=== PATIENT | male | born 1995 ===

== ENCOUNTER 2023-08-26 05:45 | Day surgery (SDC) | payer OTHER ==
[2023-08-26] VITALS (7 sets, daily range): BP systolic 125–135; BP diastolic 70–87; PULSE 65–91; RESP 9–16; TEMP 98.2; O2SAT 98–100
[~2023-08-26] VITALS: Ht 172.7 cm; Wt 82.9 kg
[2023-08-26] MEDS: cefazolin 2gm/D5W 100mL 100 ML IV ONE (05:30)
[~2023-08-26 05:45] MED LIST: CAPS60CR6 TP; DICL100G59 TOP; LIDO1ADH67 TOP
[2023-08-26] MEDS: ringers solution, lacted 1,000 ML IV SCH (06:12)
[2023-08-26] MEDS: famotidine 20mg tablet PO ONE (06:12)
[2023-08-26] MEDS ORDERED: cloNIDine hcl/PF 100mcg/ml inj ONE (07:09)
[2023-08-26] MEDS ORDERED: epiNEPHrine 1 mg/ml inj ONE (07:17)
[2023-08-26] MEDS ORDERED: ROPIVAcaine 0.5% (5mg/ml) 30ml vial ONE ×2 (07:17→08:09)
[2023-08-26] MEDS ORDERED: gelatin sponge, absorbable (Gelfoam 100) sponge TP ONE (07:18)
[2023-08-26] MEDS ORDERED: Thrombin (Bovine) 5,000 unit vial TP ONE (07:18)
[2023-08-26] MEDS ORDERED: MIDAZolam 1 MG/ML 5ML VIAL ONE (07:31)
[2023-08-26] MEDS ORDERED: fentaNYL /PF 50mcg/ml 5ml ampule ONE (07:34)
[2023-08-26] MEDS ORDERED: hydrALAZINE 20mg/ml inj. IV PRN (07:40)
[2023-08-26] MEDS ORDERED: meperidine/PF 25mg/ml syringe IV PRN ×3 (07:40)
[2023-08-26] MEDS: ketorolac trometh. 30mg/ml inj. IV ONE (07:40)
[2023-08-26] MEDS ORDERED: proCHLORperazine 10 MG/2 ml inj IV PRN (07:40)
[2023-08-26] MEDS ORDERED: morphine 2 MG/ML inj. syringe IV PRN (07:40)
[2023-08-26] MEDS ORDERED: labetalol 20mg/4ml (5mg/ml) syringe IV PRN (07:40)
[2023-08-26] MEDS: acetaminophen 1,000mg/100ml IV 100 ML IV ONE (07:40)
[2023-08-26] MEDS ORDERED: ondansetron/PF 4mg/2ml inj IV PRN (07:40)
[2023-08-26] MEDS ORDERED: ringers solution, lacted 1,000 ML IV SCH (07:40)
[2023-08-26] MEDS ORDERED: morphine 4 MG/ML inj SYRINge IV PRN (07:40)
[2023-08-26] MEDS ORDERED: sevoflurane 250ml liquid IH ONE (07:45)
[2023-08-26] MEDS ORDERED: dexamethasone sod phosphate 4mg/ml inj. ONE (08:09)
[2023-08-26] MEDS ORDERED: LIDOcaine 1%/PF 5ML 10 MG/ML VIAL ONE (08:09)
[2023-08-26] MEDS ORDERED: propofol inj 20 ML IV ONE (08:09)
[2023-08-26] MEDS ORDERED: LIDOcaine 2% (20mg/ml) 5ml vial ONE (08:09)
[2023-08-26] MEDS ORDERED: ondansetron/PF 4mg/2ml inj ONE (08:09)
[2023-08-26] MEDS: Thrombin (Bovine) 5,000 unit vial TP ONE (09:27)
[2023-08-26] MEDS ORDERED: morphine 10mg/ml inj. ONE ×2 (10:16→10:51)
== END 2023-08-26 12:06 | disposition home or self-care (01) ==
LOC: PAS 05:45 → EEVIPCON 11:00 → PAS 12:06
PROVIDERS: ATTEND Orthopaedic Surgery
DX: S83.512A Sprain of anterior cruciate ligament of left knee, initial encounter (principal); S83.282A Other tear of lateral meniscus, current injury, left knee, initial encounter; G89.18 Other acute postprocedural pain; M23.52 Chronic instability of knee, left knee; I10 Essential (primary) hypertension; E66.9 Obesity, unspecified; Z79.899 Other long term (current) drug therapy; Z68.27 Body mass index [BMI] 27.0-27.9, adult; X58.XXXA Exposure to other specified factors, initial encounter; Y93.89 Activity, other specified; Y92.89 Other specified places as the place of occurrence of the external cause; Y99.8 Other external cause status
CPT/HCPCS: 29888; 64447; 82948; C1713; J0131; J0171; J0690; J0735; J1100; J1885; J2250; J2274; J2405; J2704; J2795; J3010; J3490; J7030; J7120; L1832; Z7506; Z7508; Z7512; A4215; A4618; A6449; A7000